=== PATIENT | male | born 2000 | race Caucasian/White ===

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

== ENCOUNTER 2020-03-23 16:06 | Emergency (ER) | payer OTHER ==
[~2020-03-23 16:06] MED LIST changes: +CEPHALEXIN500 M1 PO; +MYCOLOG CREAM 115 GM T
== END 2020-03-23 16:33 | disposition home or self-care (01) ==
LOC: ED 16:06
DX: S76.911A Strain of unspecified muscles, fascia and tendons at thigh level, right thigh, initial encounter (principal); X58.XXXA Exposure to other specified factors, initial encounter; Y93.89 Activity, other specified; Y92.89 Other specified places as the place of occurrence of the external cause; Y99.8 Other external cause status

== ENCOUNTER 2020-09-16 23:09 | Emergency (ER) | payer OTHER ==
[~2020-09-16] VITALS: Ht 177.8 cm; Wt 108.9 kg
[2020-09-17] MEDS ORDERED: DEBROX15 ML OT (00:14)
== END 2020-09-17 00:17 | disposition home or self-care (01) ==
LOC: ED 23:09
DX: H61.23 Impacted cerumen, bilateral (principal); Z98.890 Other specified postprocedural states

== ENCOUNTER → 2021-01-27 | Outpatient (CLI) | payer OTHER | END | disposition home or self-care (01) | LOC: COVID19 15:30 | PROVIDERS: ATTEND Internal Medicine | DX: Z11.52 Encounter for screening for COVID-19 (principal) ==

== ENCOUNTER 2021-03-24 14:37 | Emergency (ER) | payer OTHER ==
[~2021-03-24] VITALS: Ht 175.2 cm; Wt 113.4 kg
== END 2021-03-24 17:59 | disposition left against medical advice (07) ==
LOC: ED 14:37
DX: R04.0 Epistaxis (principal); Z53.21 Procedure and treatment not carried out due to patient leaving prior to being seen by health care provider

== ENCOUNTER 2021-09-19 10:07 | Emergency (ER) | payer OTHER ==
[~2021-09-19] VITALS: Wt 113.4 kg
== END 2021-09-19 12:07 | disposition home or self-care (01) ==
LOC: ED 10:07
DX: J06.9 Acute upper respiratory infection, unspecified (principal); Z20.822 Contact with and (suspected) exposure to COVID-19

== ENCOUNTER 2022-01-06 15:53 | Emergency (ER) | payer OTHER ==
[~2022-01-06] VITALS: Ht 177.8 cm; Wt 104.3 kg
== END 2022-01-06 17:46 | disposition home or self-care (01) ==
LOC: ED 15:53
DX: U07.1 COVID-19 (principal)